=== PATIENT | female | born 1935 | race Hispanic/Latino ===

== ENCOUNTER → 2018-10-30 | Outpatient (CLI) | payer OTHER | END | disposition home or self-care (01) | LOC: RAH 12:56 | PROVIDERS: ATTEND Internal Medicine | DX: R10.2 Pelvic and perineal pain (principal) | CPT/HCPCS: 76856 ==

== ENCOUNTER → 2019-04-22 | Outpatient (CLI) | payer OTHER | END | disposition home or self-care (01) | LOC: OIH 09:26 | PROVIDERS: ATTEND Internal Medicine | DX: S43.82XA Sprain of other specified parts of left shoulder girdle, initial encounter (principal); M24.812 Other specific joint derangements of left shoulder, not elsewhere classified; M19.012 Primary osteoarthritis, left shoulder; X58.XXXA Exposure to other specified factors, initial encounter; Y93.89 Activity, other specified; Y92.89 Other specified places as the place of occurrence of the external cause; Y99.8 Other external cause status | CPT/HCPCS: 73010; 73030 ==

== ENCOUNTER → 2019-06-08 | Outpatient (CLI) | payer OTHER | END | disposition home or self-care (01) | LOC: RAH 13:31 | PROVIDERS: ATTEND Internal Medicine | DX: Z12.31 Encounter for screening mammogram for malignant neoplasm of breast (principal) | CPT/HCPCS: 77067 ==

== ENCOUNTER → 2019-09-30 | Outpatient (CLI) | payer OTHER | END | disposition home or self-care (01) | LOC: OIH 12:35 | PROVIDERS: ATTEND Internal Medicine | DX: M85.80 Other specified disorders of bone density and structure, unspecified site (principal); M41.84 Other forms of scoliosis, thoracic region; M54.14 Radiculopathy, thoracic region | CPT/HCPCS: 71100; 72070 ==

== ENCOUNTER 2019-10-31 01:55 | Observation (INO) | payer OTHER ==
[~2019-10-31] VITALS: Ht 152.4 cm; Wt 65.7 kg
[2019-10-31] MEDS ORDERED: ASPIRIN 325 MG TABLET ONE (02:51)
[2019-10-31 02:53] LABS: BASOPHILS % (AUTO) 0.5 % (0.0-5.0); EOSINOPHILS % (AUTO) 1.1 % (0.0-8.0); HEMATOCRIT 38.7 % (36-48); LYMPHOCYTES % (AUTO) 10.5 % (21.0-51.0); MEAN CORPUSCULAR HEMOGLOBIN 27.6 pg (27.0-33.0); MEAN CORPUSCULAR HGB CONC 32.3 g/dL (32.0-36.0); MEAN CORPUSCULAR VOLUME 85.5 fL (79-99); MONOCYTES % (AUTO) 7.4 % (3.0-13.0); NEUTROPHILS % (AUTO) 80.5 % (40.0-77.0); PLATELET COUNT (AUTO) 131 K/uL (130-400); RED BLOOD CELL COUNT(AUTO) 4.53 MIL/uL (4.00-5.50); RED CELL DISTRIBUTION WIDTH 14.4 % (11.0-15.5); WHITE BLOOD COUNT (AUTO) 7.3 K/uL (4.8-10.8)
[2019-10-31 02:58] LABS: CREATININE 1.7 mg/dL (0.5-1.5); POTASSIUM 4.2 mmol/L (3.5-5.1)
[2019-10-31 03:02] LABS: ALBUMIN 2.7 g/dL (3.5-5.0); BILIRUBIN,TOTAL 0.3 mg/dL (0.2-1.0); TOTAL PROTEIN, SERUM 6.4 g/dL (6.0-8.3)
[2019-10-31] MEDS ORDERED: ACETAMINOPHEN EXTRA STRENGTH 500 MG TABLET ONE (03:03)
[2019-10-31] MEDS ORDERED: SODIUM CHLORIDE 0.9% 1000ML 1,000 ML IV ONE ×2 (03:03→04:47)
[2019-10-31 03:55] LABS: INR 0.86 (0.85-1.15); PARTIAL THROMBOPLASTIN TIME 26.9 SEC (26.3-35.5); PROTHROMBIN TIME 9.1 SEC (9.6-11.6)
[2019-10-31] MEDS ORDERED: IOHEXOL-350 75 ML VIAL IV ONE (05:10)
[2019-10-31] MEDS ORDERED: ENOXAPARIN SODIUM 60 MG/0.6 ML SQ ONE (06:47)
[2019-10-31] MEDS ORDERED: SODIUM CHLORIDE 0.9% 10 ML VIAL IVP PRN (07:00)
[2019-10-31] MEDS: ENOXAPARIN SODIUM 60 MG/0.6 ML SQ SCH ×2 (09:00→20:39)
[2019-10-31] MEDS ORDERED: AZITHROMYCIN 500MG+NS 250ML 250 ML IV ONE (10:17)
[2019-10-31] MEDS ORDERED: CEFTRIAXONE SODIUM 1 GM ONE (10:18)
[2019-10-31 10:45] VITALS: BP 159/72
[2019-10-31] MEDS ORDERED: AMLO10TA7 PO (12:01)
[2019-10-31] MEDS ORDERED: ATOR40TA71 PO (12:01)
[2019-10-31] MEDS ORDERED: LEVO500T89 PO (12:01)
[2019-10-31] MEDS ORDERED: OMEP40CA13 PO (12:01)
[2019-10-31] MEDS ORDERED: TELM40TA5 PO (12:01)
[2019-10-31] MEDS ORDERED: ENOXAPARIN SODIUM 80 MG/0.8 ML SQ ONE (12:16)
[2019-10-31 13:11] LABS: CREATINE KINASE, TOTAL 65 U/L (21-232); MYOGLOBIN 107 ng/mL (10-92); TROPONIN I < 0.04 ng/mL (0.00-0.06)
[2019-10-31 16:00] VITALS: BP 137/69
[2019-10-31 20:22] VITALS: BP 140/73
[2019-10-31] MEDS: ATORVASTATIN CALCIUM 40 MG TABLET PO SCH (20:38)
[2019-11-01] VITALS (7 sets, daily range): BP systolic 125–145; BP diastolic 68–91
[2019-11-01 04:47] LABS: HEMATOCRIT 38.2 % (36-48); MEAN CORPUSCULAR HEMOGLOBIN 27.8 pg (27.0-33.0); MEAN CORPUSCULAR HGB CONC 32.8 g/dL (32.0-36.0); MEAN CORPUSCULAR VOLUME 84.9 fL (79-99); PLATELET COUNT (AUTO) 128 K/uL (130-400); RED CELL DISTRIBUTION WIDTH 14.6 % (11.0-15.5); WHITE BLOOD COUNT (AUTO) 6.1 K/uL (4.8-10.8)
[2019-11-01 05:02] LABS: ALBUMIN 2.4 g/dL (3.5-5.0); BILIRUBIN,TOTAL 0.5 mg/dL (0.2-1.0); CREATININE 1.2 mg/dL (0.5-1.5); TOTAL PROTEIN, SERUM 6.1 g/dL (6.0-8.3)
[2019-11-01] MEDS ORDERED: NON-FORMULARY MEDICATION 1 EACH (Amlodipine Besylate 10 MG) PO SCH (09:00)
[2019-11-01] MEDS: PANTOPRAZOLE SODIUM 40 MG TABLET.DR PO SCH (10:18)
[2019-11-01] MEDS: LOSARTAN 50 MG TABLET PO SCH (10:18)
[2019-11-01] MEDS: ASPIRIN 81 MG EC TAB PO SCH (10:18)
[2019-11-01] MEDS: METOPROLOL TARTRATE 25 MG TAB PO SCH ×2 (10:18→20:20)
[2019-11-01] MEDS: AMLODIPINE BESYLATE 5 MG TAB PO SCH (10:18)
[2019-11-01] MEDS: ENOXAPARIN SODIUM 60 MG/0.6 ML SQ SCH ×2 (10:19→20:20)
--- NOTE | 2019-11-01 17:47 | NUR ---
INITIAL: Met with pt and dtr this afternoon to discuss dcp. Pt mentions that she lives w spouse, she is independent w ambulation and ADLs. She does not own any DME or receive services. Per pt she was still working as [employer]. Per pt she feels safe and comfortable to [place] at [place]. CM to continue to follow and wait for Md recommendations. Addendum: 11/01/19 at 1750 by SANKET PIKE Amended: Links added.
[2019-11-01] MEDS: ATORVASTATIN CALCIUM 40 MG TABLET PO SCH (20:19)
[2019-11-02 03:23] VITALS: BP 140/77
[2019-11-02 05:31] LABS: HEMATOCRIT 41.2 % (36-48); MEAN CORPUSCULAR HEMOGLOBIN 27.5 pg (27.0-33.0); MEAN CORPUSCULAR HGB CONC 32.5 g/dL (32.0-36.0); MEAN CORPUSCULAR VOLUME 84.6 fL (79-99); PLATELET COUNT (AUTO) 173 K/uL (130-400); RED BLOOD CELL COUNT(AUTO) 4.87 MIL/uL (4.00-5.50); RED CELL DISTRIBUTION WIDTH 14.4 % (11.0-15.5); WHITE BLOOD COUNT (AUTO) 7.6 K/uL (4.8-10.8)
[2019-11-02 05:33] LABS: BAND NEUTROPHILS % (MANUAL) 13 % (0-2); LYMPHOCYTES % (MANUAL) 14 % (22-44); MAN.DIFF COMMENT-IMPRESSION MANUAL DIFFERENTIAL; MONOCYTES % (MANUAL) 2 % (2-9); PLATELET MORPHOLOGY COMMENT ADEQUATE; SEGMENTED NEUTROPHILS % 71 % (40-70)
[2019-11-02 05:35] LABS: CREATININE 1.4 mg/dL (0.5-1.5); POTASSIUM 4.4 mmol/L (3.5-5.1)
[2019-11-02 07:33] VITALS: BP 161/63
--- NOTE | 2019-11-02 08:19 | NUR ---
FLU VACCINE Pt has had flu vaccine already Addendum: 11/02/19 at 0820 by SOULEYMANE HODGE RN Amended: Links added.
[2019-11-02] MEDS: PANTOPRAZOLE SODIUM 40 MG TABLET.DR PO SCH (08:33)
[2019-11-02] MEDS: METOPROLOL TARTRATE 25 MG TAB PO SCH (08:33)
[2019-11-02] MEDS: LOSARTAN 50 MG TABLET PO SCH (08:33)
[2019-11-02] MEDS: ASPIRIN 81 MG EC TAB PO SCH (08:33)
[2019-11-02] MEDS: AMLODIPINE BESYLATE 5 MG TAB PO SCH (08:33)
[2019-11-02] MEDS: ENOXAPARIN SODIUM 60 MG/0.6 ML SQ SCH (08:34)
[2019-11-02 11:01] VITALS: BP 156/68
--- NOTE | 2019-11-02 11:53 | NUR ---
discharge patient given discharge instructions and education on follow up appointments and new prescribed medications. Patient verbalized understanding of all education given via teach back. no concerns voiced. iv discontinued, catheter intact. no distress noted upon discharge. all belongings taken with.
== END 2019-11-02 11:42 | disposition home or self-care (01) ==
LOC: EDH 01:55 → EDHIP 06:30 → 4CH 10:06 → 4BH 18:19
PROVIDERS: ADMIT Internal Medicine; ATTEND Internal Medicine
DX: I26.99 Other pulmonary embolism without acute cor pulmonale (principal); J44.9 Chronic obstructive pulmonary disease, unspecified; I82.432 Acute embolism and thrombosis of left popliteal vein; I10 Essential (primary) hypertension; E78.5 Hyperlipidemia, unspecified; M19.90 Unspecified osteoarthritis, unspecified site; K21.9 Gastro-esophageal reflux disease without esophagitis; Z90.710 Acquired absence of both cervix and uterus; Z90.49 Acquired absence of other specified parts of digestive tract; Z98.51 Tubal ligation status; Z79.899 Other long term (current) drug therapy; Z88.5 Allergy status to narcotic agent; Z88.6 Allergy status to analgesic agent; Z91.048 Other nonmedicinal substance allergy status
CPT/HCPCS: 36415 ×3; 71045; 71250; 74176; 78580; 80048; 80053 ×2; 82550 ×2; 83874; 84484 ×2; 85025 ×2; 85027; 85378; 85610; 85730; 87804 ×2; 93005; 93306; 93970; 96372 ×3; 99284; A9540; G0378 ×54; J0456; J0696; J1650 ×7; J7030 ×2; Q9967

== ENCOUNTER 2019-11-07 20:43 | Observation (INO) | payer OTHER ==
[~2019-11-07] VITALS: Ht 152.4 cm; Wt 65.8 kg
[~2019-11-07 20:43] MED LIST: AMLO10TA7 PO; ATOR40TA71 PO; LEVO500T89 PO; OMEP40CA13 PO; TELM40TA5 PO
[2019-11-07 21:39] LABS: BASOPHILS % (AUTO) 0.3 % (0.0-5.0); EOSINOPHILS % (AUTO) 1.9 % (0.0-8.0); HEMATOCRIT 37.9 % (36-48); LYMPHOCYTES % (AUTO) 21.2 % (21.0-51.0); MEAN CORPUSCULAR HEMOGLOBIN 26.7 pg (27.0-33.0); MEAN CORPUSCULAR HGB CONC 31.9 g/dL (32.0-36.0); MEAN CORPUSCULAR VOLUME 83.5 fL (79-99); MONOCYTES % (AUTO) 8.8 % (3.0-13.0); NEUTROPHILS % (AUTO) 67.3 % (40.0-77.0); PLATELET COUNT (AUTO) 298 K/uL (130-400); RED BLOOD CELL COUNT(AUTO) 4.54 MIL/uL (4.00-5.50); RED CELL DISTRIBUTION WIDTH 14.2 % (11.0-15.5); WHITE BLOOD COUNT (AUTO) 7.9 K/uL (4.8-10.8)
[2019-11-07 21:47] LABS: INR 1.16 (0.85-1.15); PROTHROMBIN TIME 12.1 SEC (9.6-11.6)
[2019-11-07 21:49] LABS: CREATININE 1.5 mg/dL (0.5-1.5); POTASSIUM 4.1 mmol/L (3.5-5.1)
[2019-11-07 21:54] LABS: ALBUMIN 2.8 g/dL (3.5-5.0); BILIRUBIN,TOTAL 0.3 mg/dL (0.2-1.0); TOTAL PROTEIN, SERUM 6.8 g/dL (6.0-8.3)
[2019-11-07 22:30] LABS: APPEARANCE,URINE Clear (CLEAR); BILIRUBIN,URINE Negative (NEGATIVE); COLOR,URINE Yellow (YELLOW); GLUCOSE, URINE (UA) Negative (NEGATIVE); KETONES,URINE Negative (NEGATIVE); LEUKOCYTE ESTERASE ,URINE Small (NEGATIVE); NITRATE,URINE Negative (NEGATIVE); OCCULT BLOOD,URINE Large (NEGATIVE); PROTEIN,URINE Negative (NEGATIVE)
[2019-11-07 22:44] LABS: BACTERIA,URINE Few /HPF (None Seen)
[2019-11-07 22:45] LABS: SQUAMOUS EPITHELIAL CELL,UR 0-2 /HPF (0-2)
[2019-11-08] VITALS (7 sets, daily range): BP systolic 120–163; BP diastolic 68–88
[2019-11-08] MEDS ORDERED: ASPI-891 PO (01:08)
[2019-11-08] MEDS ORDERED: RIVA15TA PO (01:08)
[2019-11-08] MEDS ORDERED: METO-408 PO (01:08)
[2019-11-08 06:01] LABS: HEMATOCRIT 34.3 % (36-48); MEAN CORPUSCULAR HEMOGLOBIN 26.6 pg (27.0-33.0); MEAN CORPUSCULAR HGB CONC 31.8 g/dL (32.0-36.0); MEAN CORPUSCULAR VOLUME 83.7 fL (79-99); PLATELET COUNT (AUTO) 283 K/uL (130-400); RED CELL DISTRIBUTION WIDTH 14.1 % (11.0-15.5); WHITE BLOOD COUNT (AUTO) 6.2 K/uL (4.8-10.8)
[2019-11-08 06:21] LABS: ALBUMIN 2.3 g/dL (3.5-5.0); BILIRUBIN,TOTAL 0.3 mg/dL (0.2-1.0); CREATININE 1.4 mg/dL (0.5-1.5); MAGNESIUM 1.9 mg/dL (1.80-2.40); POTASSIUM 5.1 mmol/L (3.5-5.1); TOTAL PROTEIN, SERUM 6.4 g/dL (6.0-8.3)
[2019-11-08 08:22] LABS: APPEARANCE,URINE Clear (CLEAR); BILIRUBIN,URINE Negative (NEGATIVE); COLOR,URINE Yellow (YELLOW); GLUCOSE, URINE (UA) Negative (NEGATIVE); KETONES,URINE Negative (NEGATIVE); LEUKOCYTE ESTERASE ,URINE Negative (NEGATIVE); NITRATE,URINE Negative (NEGATIVE); OCCULT BLOOD,URINE Trace (NEGATIVE); PH,URINE 6.5 (5.0-8.0); PROTEIN,URINE Negative (NEGATIVE); UROBILINOGEN,URINE 0.2 mg/dL (0.2-1.0)
[2019-11-08 09:03] LABS: BACTERIA,URINE Few /HPF (None Seen); SQUAMOUS EPITHELIAL CELL,UR 0-2 /HPF (0-2); WBC,URINE None Seen /HPF (0-1)
[2019-11-08] MEDS: FAMOTIDINE/PF 20 MG/2 ML VIAL IV SCH (09:27)
--- NOTE | 2019-11-08 09:45 | NUR ---
DR [place]AN LAKE FOR CONSULT PENDING CB
[2019-11-08] MEDS ORDERED: LACTULOSE 20 GM/30 ML UDCUP PO SCH ×2 (13:45→15:30)
[2019-11-08] MEDS ORDERED: PANTOPRAZOLE 40 MG/VIAL IV SCH (13:45)
[2019-11-08] MEDS: PANTOPRAZOLE SODIUM 80 MG in SODIUM CHLORIDE 0.9% 100 ML IV SCH (15:12)
[2019-11-08] MEDS ORDERED: MAGNESIUM CITRATE 296 ML SOLUTION PO SCH (15:45)
[2019-11-08] MEDS ORDERED: PEG 3350/NA SULF,BICARB,CL/KCL 4000 ML SOLN PO SCH (16:15)
[2019-11-08] MEDS ORDERED: BISACODYL 5 MG TABLET.DR PO SCH (18:00)
[2019-11-09] VITALS (19 sets, daily range): BP systolic 83–170; BP diastolic 47–77
[2019-11-09] MEDS: PANTOPRAZOLE SODIUM 80 MG in SODIUM CHLORIDE 0.9% 100 ML IV SCH (03:29)
--- NOTE | 2019-11-09 05:00 | NUR ---
TAP WATER ENEMA Patient resting in bed, AA&O X3. No shortness of breath or distress. Explain procedure and patient states no questions at this time. Administered 1500 ml of tap water; patient tolerated well. Patient's stool output is clear but with small particles of stool. Will endorse to day shift nurse.
--- NOTE | 2019-11-09 06:35 | NUR ---
MD ROBERTO Ferguson made rounds with patient. Discussed care of plan with patient. Informed MD Ferguson that patient will be going for an EGD and colonoscopy with MD Morel. Requested an H&P for patient due to procedure; states he will do the H&P. 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 Will follow orders and continue to monitor patient.
--- NOTE | 2019-11-09 07:20 | NUR ---
MD FORD Paged MD Ford to inform that patient's stool output is clear with small stool particles. Patient received Golytely and a 0500 tap water enema. Endorsed it to day shift nurse that page was made.
--- NOTE | 2019-11-09 09:08 | NUR ---
Chart revewed, Note made of last admission. Pt w/ thrombus, started on Xarelto, spiculated mass in lung, Investigation deferred at that time.
[2019-11-09] MEDS: FAMOTIDINE/PF 20 MG/2 ML VIAL IV SCH (09:15)
--- NOTE | 2019-11-09 10:32 | NUR ---
DR WHALEY CONSULTED SPOKE TO DR WHALEY- STATED HE WILL BE BY TO SEE PT
[2019-11-09] MEDS ORDERED: LIDOCAINE HCL-MPF 2% 5ML VIAL ONE (13:00)
[2019-11-09] MEDS ORDERED: PROPOFOL 10 MG/ML 20ML VIAL IV ONE (13:00)
[2019-11-09] MEDS ORDERED: ESMOLOL HCL 10 MG/ML 10 ML VIAL ONE (13:01)
[2019-11-09] MEDS ORDERED: PHENYLEPHRINE HCL 10 MG/ML 1ML VIAL IV ONE (13:08)
--- NOTE | 2019-11-09 14:41 | NUR ---
STATUS PER ROAD MACHINE OPERATOR THAT HAD PT WHILE IN EGD PROCEDURE- STATED SHE WAS HAVING EPISODES OF TACHYCARDIA AND ABSENT P WAVES-M POSSIBLY IN AFIB. DR MEJIA MADE AWARE. STATED OK TO DC BUT SEND TO CLINIC FOR XARELTO SAMPLES MEANWHILE- RELAYED TO DR MEJIA THAT DR WHALEY CHANGED XARELTO TO 20MG QD. VARUN STATED THIS WAS FINE. PT MADE AWARE AND VERBALIZED UNDERSTANDING
[2019-11-09 15:07] LABS: HEMATOCRIT 36.5 % (36-48)
== END 2019-11-09 17:05 | disposition home or self-care (01) ==
LOC: EDH 20:43 → EDHIP 22:55 → 3BH 23:22
PROVIDERS: ADMIT Internal Medicine; ATTEND Internal Medicine
DX: K62.5 Hemorrhage of anus and rectum (principal); K29.00 Acute gastritis without bleeding; E86.0 Dehydration; K21.0 Gastro-esophageal reflux disease with esophagitis; K44.9 Diaphragmatic hernia without obstruction or gangrene; K31.7 Polyp of stomach and duodenum; K22.10 Ulcer of esophagus without bleeding; I12.9 Hypertensive chronic kidney disease with stage 1 through stage 4 chronic kidney disease, or unspecified chronic kidney disease; N18.9 Chronic kidney disease, unspecified; I26.99 Other pulmonary embolism without acute cor pulmonale; E78.5 Hyperlipidemia, unspecified; I82.409 Acute embolism and thrombosis of unspecified deep veins of unspecified lower extremity; E78.00 Pure hypercholesterolemia, unspecified; J44.9 Chronic obstructive pulmonary disease, unspecified; M19.90 Unspecified osteoarthritis, unspecified site; D62 Acute posthemorrhagic anemia; T50.905A Adverse effect of unspecified drugs, medicaments and biological substances, initial encounter; Z90.710 Acquired absence of both cervix and uterus; Z98.51 Tubal ligation status; Z79.01 Long term (current) use of anticoagulants; Z79.82 Long term (current) use of aspirin; Z79.899 Other long term (current) drug therapy; Z88.6 Allergy status to analgesic agent; Z91.048 Other nonmedicinal substance allergy status; X58.XXXA Exposure to other specified factors, initial encounter; Y92.89 Other specified places as the place of occurrence of the external cause; Y93.89 Activity, other specified
CPT/HCPCS: 36415 ×3; 43251; 71045; 80053 ×2; 81001; 82270; 82550; 83735; 84484; 85014 ×2; 85018 ×2; 85025; 85027; 85610; 85730; 87088; 88305; 93005; 96365; 96366; 96375 ×2; 96376; 99284; A4615; C9113 ×3; G0378 ×41; J2370; J2704; J3490 ×4

== ENCOUNTER → 2019-11-30 | Outpatient (CLI) | payer OTHER ==
[~2019-11-30] MED LIST changes: +ASPI-891 PO; -ATOR40TA71 PO; -LEVO500T89 PO; +METO-408 PO; -OMEP40CA13 PO; +RIVA15TA PO; -TELM40TA5 PO
== END | disposition home or self-care (01) ==
LOC: OIH 10:06
PROVIDERS: ATTEND Internal Medicine
DX: I70.0 Atherosclerosis of aorta (principal); I10 Essential (primary) hypertension
CPT/HCPCS: 71046

== ENCOUNTER → 2020-06-07 | Outpatient (CLI) | payer OTHER | END | disposition home or self-care (01) | LOC: OIH 13:30 | PROVIDERS: ATTEND Internal Medicine | DX: M47.24 Other spondylosis with radiculopathy, thoracic region (principal); M17.0 Bilateral primary osteoarthritis of knee; M48.04 Spinal stenosis, thoracic region; M25.78 Osteophyte, vertebrae; I70.0 Atherosclerosis of aorta | CPT/HCPCS: 72070; 73560 ==

== ENCOUNTER → 2020-06-10 | Outpatient (CLI) | payer OTHER | END | disposition home or self-care (01) | LOC: RAH 13:41 | PROVIDERS: ATTEND Internal Medicine | DX: Z12.31 Encounter for screening mammogram for malignant neoplasm of breast (principal) | CPT/HCPCS: 77067 ==

== ENCOUNTER → 2020-07-26 | Outpatient (CLI) | payer OTHER | END | disposition home or self-care (01) | LOC: OIH 15:38 | PROVIDERS: ATTEND Internal Medicine | DX: M47.812 Spondylosis without myelopathy or radiculopathy, cervical region (principal); M54.2 Cervicalgia; M48.02 Spinal stenosis, cervical region; M25.78 Osteophyte, vertebrae; M40.202 Unspecified kyphosis, cervical region; G95.89 Other specified diseases of spinal cord | CPT/HCPCS: 72040 ==

== ENCOUNTER → 2021-04-18 | Outpatient (CLI) | payer OTHER ==
[~2021-04-18] MED LIST changes: +AMLO-258 PO; -AMLO10TA7 PO
== END | disposition home or self-care (01) ==
LOC: OIH 15:40
PROVIDERS: ATTEND Internal Medicine
DX: S69.92XA Unspecified injury of left wrist, hand and finger(s), initial encounter (principal); M18.9 Osteoarthritis of first carpometacarpal joint, unspecified; M17.12 Unilateral primary osteoarthritis, left knee; W19.XXXA Unspecified fall, initial encounter; Y93.89 Activity, other specified; Y92.89 Other specified places as the place of occurrence of the external cause; Y99.8 Other external cause status
CPT/HCPCS: 73100; 73560

== ENCOUNTER → 2021-07-13 | Outpatient (CLI) | payer OTHER | END | disposition home or self-care (01) | LOC: RAH 11:10 | PROVIDERS: ATTEND Internal Medicine | DX: M47.22 Other spondylosis with radiculopathy, cervical region (principal) | CPT/HCPCS: 72040 ==

== ENCOUNTER 2023-08-24 09:10 | Emergency (ER) | payer OTHER ==
[~2023-08-24] VITALS: Ht 152.4 cm; Wt 59.4 kg
[2023-08-24] MEDS ORDERED: PRED20TA3 PO (11:26)
[2023-08-24] MEDS ORDERED: VALA100031 PO (11:26)
[2023-08-24] MEDS ORDERED: GABA300C PO (11:26)
[2023-08-24] MEDS ORDERED: GABAPENTIN 300 MG CAPSULE PO SCH (11:30)
[2023-08-24] MEDS ORDERED: PREDNISONE 20 MG TABLET PO ONE (11:30)
[2023-08-24] MEDS ORDERED: VALACYCLOVIR HCL 500 MG TABLET PO SCH (11:30)
[2023-08-24 12:00] VITALS: BP 126/74; PULSE 84; RESP 18; O2SAT 98
== END 2023-08-24 12:41 | disposition home or self-care (01) ==
LOC: EDH 09:10
DX: B02.9 Zoster without complications (principal); E78.00 Pure hypercholesterolemia, unspecified; I10 Essential (primary) hypertension; K21.9 Gastro-esophageal reflux disease without esophagitis; Z79.01 Long term (current) use of anticoagulants; Z79.52 Long term (current) use of systemic steroids; Z79.624 Long term (current) use of inhibitors of nucleotide synthesis; Z79.82 Long term (current) use of aspirin; Z79.899 Other long term (current) drug therapy; Z88.5 Allergy status to narcotic agent; Z88.6 Allergy status to analgesic agent; Z88.8 Allergy status to other drugs, medicaments and biological substances; Z90.49 Acquired absence of other specified parts of digestive tract
CPT/HCPCS: 36415; 82550; 83874; 84484; 93005

== ENCOUNTER → 2024-12-25 | Outpatient (CLI) | payer OTHER ==
[~2024-12-25] MED LIST changes: +GABA300C PO; +PRED20TA3 PO; +VALA100031 PO
--- NOTE | 2024-12-25 16:33 | HMCIMG ---
Exam: Right clavicle 2 views Reason: AC joint separation. FINDINGS: There are normal-appearing bones. AC joint appears unremarkable as does the glenohumeral joint space. There is no evidence of AC joint separation or fracture. IMPRESSION: 1. Normal views of the clavicle and AC joint.
== END | disposition home or self-care (01) ==
LOC: OIH 15:34
PROVIDERS: ATTEND Internal Medicine
DX: S43.101A Unspecified dislocation of right acromioclavicular joint, initial encounter (principal); X58.XXXA Exposure to other specified factors, initial encounter; Y93.89 Activity, other specified; Y92.89 Other specified places as the place of occurrence of the external cause; Y99.8 Other external cause status
CPT/HCPCS: 73000

== ENCOUNTER → 2024-12-28 | Outpatient (CLI) | payer OTHER ==
--- NOTE | 2024-12-28 14:15 | HMCIMG ---
Exam Type: US VENOUS DOPPLER UNILATERAL Clinical Information: aute embolism and thrombosis of unspecified deep veins of unspecified lower Comparison: None Findings: The examination shows normal deep venous system. There is normal compressibility at all levels. There is no intraluminal clot. There is no occlusion. Adequate response is obtained on augmentation. Impression: No evidence of DVT.
== END | disposition home or self-care (01) ==
LOC: RAH 12-25 17:02
PROVIDERS: ATTEND Internal Medicine
DX: I82.403 Acute embolism and thrombosis of unspecified deep veins of lower extremity, bilateral (principal); R60.0 Localized edema
CPT/HCPCS: 93971

== ENCOUNTER → 2025-05-20 | Outpatient (CLI) | payer OTHER ==
--- NOTE | 2025-05-20 14:17 | HMCIMG ---
US SOFT TISSUE UPPER EXTREMITY REASON: LOCALIZED SWELLING MASS/LUMP. COMPARISON: None TECHNIQUE: Right upper extremity ultrasound study was performed with specific attention given to the palpable area. FINDINGS: At the region of interest, there is a septated cyst measuring 12 x 6 x 10 mm. IMPRESSION: Septated cyst is seen in the region of interest measuring 12 x 6 x 10 mm.
== END | disposition home or self-care (01) ==
LOC: RAH 13:11
PROVIDERS: ATTEND Internal Medicine
DX: R22.30 Localized swelling, mass and lump, unspecified upper limb (principal)
CPT/HCPCS: 76882